=== PATIENT | female | born 1935 | race Caucasian/White ===

== ENCOUNTER 2021-09-15 05:16 | Inpatient (IN) ==
[2021-09-15] MEDS ORDERED: FUROSEMIDE 40 MG/4 ML VIAL IV STA (06:22)
[2021-09-15 06:49] LABS: ABG Base Excess 5.8 MMOL/L (-2.5-2.5); ABG HCO3 29.5 MMOL/L (20-26); ABG Oxygen Saturation 89.7 % (95-100); ABG PCO2 34.5 MM HG (35-48); ABG PH 7.528 (7.35-7.45); ABG PO2 57.5 MM HG (80-95); ABG TCO2 26.1 MMOL/L (23-27)
[2021-09-15 07:00] LABS: Basophils % 0.1 % (0.0-0.8); Hematocrit 29.2 VOL% (35.7-47.0); Hemoglobin 9.5 GM/DL (12.0-16.0); Immature Granulocytes % 0.7 %; Immature Granulocytes Absolute 0.16 #; Lymphocytes # 0.6 10*3/uL (1.4-4.0); Lymphocytes % 2.7 % (21.3-54.2); Mean Corpuscular HGB Conc 32.5 GM/DL (32-36); Mean Corpuscular Volume 89.8 FL (87-102); Mean Platelet Volume 10.1 FL (9.6-12.0); Neutrophils % 90.5 % (38.7-73.9); Platelet Count 435 T/CUMM (130-400); Red Blood Count 3.25 MC/CUMM (3.8-5.5); Red Cell Distribution Width 14.6 % (9.3-17.3); White Blood Count 21.9 T/CUMM (4-12)
[2021-09-15 07:11] LABS: INR 1.1; PT Patient Result 11.8 SECS (10.5-12.0); Partial Thromboplastin Time 24.8 SECS (23.8-32.1)
[2021-09-15] MEDS ORDERED: MEROPENEM 500 MG in SODIUM CHLORIDE 0.9% 100 ML IV ONE (07:19)
[2021-09-15 07:21] LABS: Albumin 2.9 G/DL (3.4-5.0); Bilirubin,Total 0.6 MG/DL (0.20-1.00); Calcium 8.7 MG/DL (8.5-10.1); Osmolality,Calculated 283.5 MOS/KG (273-304); Potassium 4.5 MMOL/L (3.5-5.1); Total Protein 6.5 G/DL (6.4-8.2)
[2021-09-15] MEDS ORDERED: HYDROCORTISONE 100 MG VIAL IV STA (08:26)
[2021-09-15] MEDS ORDERED: ONDANSETRON 4 MG/2 ML VIAL IV PRN (09:03)
[2021-09-15] MEDS ORDERED: ACETAMINOPHEN 325 MG TABLET PO PRN (09:03)
[2021-09-15] MEDS ORDERED: ALBUTEROL 2.5 MG/3 ML NEB RESP TX PRN (09:03)
[2021-09-15] MEDS: PANTOPRAZOLE 40 MG VIAL IV SCH (09:24)
[2021-09-15 10:32] LABS: Lymphocytes 4 % (20-55); Segmented Neutrophils 92 % (50-85); Total Cells Counted 100
[2021-09-15 10:33] LABS: Ovalocytes Few; Platelet Estimate Normal; Polychromasia Slight; Target Cells Few
[2021-09-15] MEDS: LEVOTHYROXINE 100 MCG VIAL IV SCH (10:37)
[2021-09-15] MEDS ORDERED: ACETAMINOPHEN 500 MG TABLET PO PRN (10:51)
[2021-09-15] MEDS ORDERED: traMADol 50 MG TABLET PO PRN (10:53)
[2021-09-15] MEDS ORDERED: traMADol 50 MG TABLET PO SCH (11:00)
[2021-09-15] MEDS ORDERED: MORPHINE 2 MG/1 ML SYRINGE IV STA (11:00)
[2021-09-15] MEDS ORDERED: ONDANSETRON 4 MG/2 ML VIAL IV STA (11:00)
[2021-09-15] MEDS ORDERED: ENOXAPARIN 40 MG/0.4 ML SYRINGE SUBCUT SCH (12:00)
[2021-09-15] MEDS: HYDROCORTISONE 100 MG VIAL IV SCH (14:54)
[2021-09-15] MEDS: MEROPENEM 500 MG in SODIUM CHLORIDE 0.9% 100 ML IV SCH (16:39)
[2021-09-15] MEDS ORDERED: METOPROLOL TARTRATE 25 MG TABLET PO SCH (17:45)
[2021-09-15] MEDS ORDERED: AMIODARONE INJ 150 MG in DEXTROSE 5% 100 ML IV ONE (17:54)
[2021-09-15] MEDS ORDERED: ASPIRIN 325 MG TABLET PO ONE (17:54)
[2021-09-15] MEDS ORDERED: ENOXAPARIN 80 MG/0.8 ML SYRINGE SUBCUT ONE (17:54)
[2021-09-15] MEDS: FUROSEMIDE 40 MG/4 ML VIAL IV SCH (18:00)
[2021-09-15] MEDS ORDERED: AMIODARONE INJ 450 MG in DEXTROSE 5% 241 ML IV SCH (18:30)
[2021-09-15 18:35] LABS: Calcium 8.5 MG/DL (8.5-10.1); Osmolality,Calculated 283.5 MOS/KG (273-304); Potassium 4.7 MMOL/L (3.5-5.1)
[2021-09-15] MEDS ORDERED: TIROFIBAN 5,000 MCG/100 ML PREMIX IV ONE (19:29)
[2021-09-15] MEDS ORDERED: DOPamine 800 MG/250 ML PREMIX IV ONE ×2 (20:01→20:04)
[2021-09-15] MEDS ORDERED: FUROSEMIDE 40 MG/4 ML VIAL IV ONE (20:24)
[2021-09-15] MEDS ORDERED: ETOMIDATE 20 MG/10 ML VIAL IV ONE (20:31)
[2021-09-15] MEDS ORDERED: ROCURONIUM 100 MG/10 ML VIAL IV ONE (20:32)
[2021-09-15] MEDS ORDERED: FUROSEMIDE 40 MG/4 ML VIAL ONE (20:35)
[2021-09-15] MEDS: TIROFIBAN 5,000 MCG/100 ML PREMIX IV SCH (20:39)
[2021-09-15] MEDS ORDERED: HEPARIN/NACL 0.9% 2 UNITS/ML 1,000 UNIT/500 ML BAG IV ONE (20:44)
[2021-09-15] MEDS ORDERED: SIMVASTATIN 20 MG TABLET PO SCH (21:00)
[2021-09-15] MEDS: DOPamine 800 MG/250 ML PREMIX IV PRN (21:08)
[2021-09-15 22:39] LABS: ABG Base Excess -4.4 MMOL/L (-2.5-2.5); ABG HCO3 20.7 MMOL/L (20-26); ABG Oxygen Saturation 91.8 % (95-100); ABG PCO2 58.1 MM HG (35-48); ABG PH 7.221 (7.35-7.45); ABG PO2 83.5 MM HG (80-95); ABG TCO2 22.6 MMOL/L (23-27)
[2021-09-15] MEDS: rOPINIRole 1 MG TABLET PO SCH (23:19)
[2021-09-16] MEDS: HYDROCORTISONE 100 MG VIAL IV SCH ×4 (00:58→23:03)
[2021-09-16] MEDS: MEROPENEM 500 MG in SODIUM CHLORIDE 0.9% 100 ML IV SCH ×4 (01:06→23:04)
[2021-09-16] MEDS: TIROFIBAN 5,000 MCG/100 ML PREMIX IV SCH ×3 (02:01→22:45)
[2021-09-16] MEDS: AMIODARONE INJ 450 MG in DEXTROSE 5% 241 ML IV SCH ×2 (02:55→14:38)
[2021-09-16 03:15] LABS: ABG Base Excess 1.8 MMOL/L (-2.5-2.5); ABG Oxygen Saturation 97.9 % (95-100); ABG PCO2 48.3 MM HG (35-48); ABG PH 7.365 (7.35-7.45); ABG TCO2 25.7 MMOL/L (23-27)
[2021-09-16 03:17] LABS: Basophils % 0.1 % (0.0-0.8); Hematocrit 26.8 VOL% (35.7-47.0); Hemoglobin 8.5 GM/DL (12.0-16.0); Immature Granulocytes % 1.1 %; Lymphocytes # 0.5 10*3/uL (1.4-4.0); Lymphocytes % 1.6 % (21.3-54.2); Mean Corpuscular HGB Conc 31.7 GM/DL (32-36); Mean Corpuscular Volume 90.2 FL (87-102); Mean Platelet Volume 10.2 FL (9.6-12.0); Monocytes % 9.2 % (1.7-12.7); Platelet Count 433 T/CUMM (130-400); Red Blood Count 2.97 MC/CUMM (3.8-5.5); Red Cell Distribution Width 14.2 % (9.3-17.3); White Blood Count 28.3 T/CUMM (4-12)
[2021-09-16 03:36] LABS: Hypochromia 1+; Lymphocytes 1 % (20-55); Microcytosis 1+; Platelet Estimate Adequate; Segmented Neutrophils 91 % (50-85); Total Cells Counted 100
[2021-09-16 03:47] LABS: Calcium 8.1 MG/DL (8.5-10.1); Osmolality,Calculated 289.5 MOS/KG (273-304); Potassium 4.2 MMOL/L (3.5-5.1)
[2021-09-16] MEDS: MIDAZOLAM 100 MG in SODIUM CHLORIDE 0.9% 80 ML IV PRN ×2 (06:59→23:46)
[2021-09-16] MEDS: LEVOTHYROXINE 100 MCG VIAL IV SCH (07:24)
[2021-09-16] MEDS: FUROSEMIDE 40 MG/4 ML VIAL IV SCH ×2 (08:44→16:04)
[2021-09-16] MEDS: PANTOPRAZOLE 40 MG VIAL IV SCH (08:44)
[2021-09-16] MEDS: MAGNESIUM OXIDE 400 MG TABLET PO SCH (08:47)
[2021-09-16] MEDS: SERTRALINE 25 MG TABLET PO SCH (08:47)
[2021-09-16] MEDS: ASPIRIN CHEW 81 MG TABLET PO SCH (08:47)
[2021-09-16] MEDS ORDERED: ASPIRIN EC 81 MG TABLET PO SCH (09:00)
[2021-09-16] MEDS ORDERED: SODIUM CHLORIDE 0.9% 250 ML IV ONE (11:00)
[2021-09-16] MEDS: DOXYCYCLINE HYCLATE INJ 100 MG in SODIUM CHLORIDE 0.9% 100 ML IV SCH ×2 (11:11→23:45)
[2021-09-16] MEDS: DORNASE ALFA 2.5 MG/2.5 ML VIAL RESP TX SCH ×2 (11:32→19:20)
[2021-09-16 12:03] LABS: ABG Base Excess 2.9 MMOL/L (-2.5-2.5); ABG Oxygen Saturation 99.8 % (95-100); ABG PH 7.424 (7.35-7.45); ABG TCO2 26.1 MMOL/L (23-27); Glucose Heart Surgery 133 MG/DL (74-106); Hematocrit Heart Surgery 20.6 PERCENT (37-47); Hemoglobin Heart Surgery 6.6 G/DL (12.0-16.0); Potassium Heart/CVR 4.6 MMOL/L (3.5-5.1)
[2021-09-16] MEDS: DOPamine 800 MG/250 ML PREMIX IV PRN (12:07)
[2021-09-16] MEDS ORDERED: SODIUM CHLORIDE 0.9% 1,000 ML IV PRN (12:54)
[2021-09-16] MEDS ORDERED: FUROSEMIDE 100 MG/10 ML VIAL IV ONE (13:56)
[2021-09-16] MEDS ORDERED: ACETYLCYSTEINE 20% 800 MG/4 ML VIAL RESP TX SCH (15:00)
[2021-09-16 18:31] LABS: Arterial Base Excess iSTAT -1 MMOL/L (-2.5-2.5); Arterial Bicarbonate iSTAT 23.8 MMOL/L (20-26); Arterial O2 Saturation iSTAT 96 % (95-100); Arterial PCO2 iSTAT 37 MM HG (35-48); Arterial PO2 iSTAT 78 MM HG (80-95); Arterial Total CO2 iSTAT 25 MMO/L (23-27)
[2021-09-16] MEDS: rOPINIRole 1 MG TABLET PO SCH (20:09)
[2021-09-16 22:41] LABS: ABG Base Excess -0.3 MMOL/L (-2.5-2.5); ABG HCO3 24.1 MMOL/L (20-26); ABG PCO2 42.2 MM HG (35-48); ABG PH 7.377 (7.35-7.45); ABG PO2 81.2 MM HG (80-95); ABG TCO2 23.1 MMOL/L (23-27); Glucose Heart Surgery 134 MG/DL (74-106); Hematocrit Heart Surgery 26.7 PERCENT (37-47); Hemoglobin Heart Surgery 8.6 G/DL (12.0-16.0); Potassium Heart/CVR 4.8 MMOL/L (3.5-5.1)
[2021-09-17 04:29] LABS: ABG Base Excess -1.7 MMOL/L (-2.5-2.5); ABG HCO3 22.9 MMOL/L (20-26); ABG Oxygen Saturation 97.4 % (95-100); ABG PCO2 41.6 MM HG (35-48); ABG PH 7.362 (7.35-7.45); ABG TCO2 21.2 MMOL/L (23-27)
[2021-09-17 04:47] LABS: Basophils % 0.1 % (0.0-0.8); Hematocrit 24.7 VOL% (35.7-47.0); Hemoglobin 8.2 GM/DL (12.0-16.0); Immature Granulocytes % 0.7 %; Immature Granulocytes Absolute 0.15 #; Lymphocytes # 1.1 10*3/uL (1.4-4.0); Lymphocytes % 4.8 % (21.3-54.2); Mean Corpuscular HGB Conc 33.2 GM/DL (32-36); Mean Corpuscular Volume 90.1 FL (87-102); Mean Platelet Volume 11.1 FL (9.6-12.0); Monocytes % 7.5 % (1.7-12.7); Neutrophils % 86.9 % (38.7-73.9); Red Blood Count 2.74 MC/CUMM (3.8-5.5); Red Cell Distribution Width 14.3 % (9.3-17.3); White Blood Count 21.8 T/CUMM (4-12)
[2021-09-17 04:51] LABS: Platelet Count 274 T/CUMM (130-400)
[2021-09-17 04:57] LABS: Lymphocytes 2 % (20-55); Platelet Estimate Adequate; Segmented Neutrophils 90 % (50-85); Total Cells Counted 100
[2021-09-17 04:58] LABS: Hypochromia 1+; Microcytosis 1+
[2021-09-17 05:09] LABS: Calcium 7.2 MG/DL (8.5-10.1); Osmolality,Calculated 298.1 MOS/KG (273-304); Potassium 4.7 MMOL/L (3.5-5.1)
[2021-09-17] MEDS: HYDROCORTISONE 100 MG VIAL IV SCH ×3 (06:13→23:06)
[2021-09-17] MEDS: LEVOTHYROXINE 100 MCG VIAL IV SCH (06:14)
[2021-09-17] MEDS: FUROSEMIDE 40 MG/4 ML VIAL IV SCH ×2 (07:15→14:50)
[2021-09-17] MEDS: PANTOPRAZOLE 40 MG VIAL IV SCH (07:15)
[2021-09-17] MEDS: MEROPENEM 500 MG in SODIUM CHLORIDE 0.9% 100 ML IV SCH ×3 (07:20→23:06)
[2021-09-17] MEDS: DORNASE ALFA 2.5 MG/2.5 ML VIAL RESP TX SCH ×2 (07:30→18:15)
[2021-09-17] MEDS: SERTRALINE 25 MG TABLET PO SCH (08:40)
[2021-09-17] MEDS: ASPIRIN CHEW 81 MG TABLET PO SCH (08:40)
[2021-09-17] MEDS: MAGNESIUM OXIDE 400 MG TABLET PO SCH (08:40)
[2021-09-17 09:39] LABS: Bacteria,Urine Occasional /HPF (Few); Hyaline Casts,Urine 35 /LPF (0-3); Mucus,Urine Occasional /LPF (Occasional); RBC,Urine 4 /HPF (0-4); Squamous Epithelial Cell,Urine Occasional /HPF (0-10); Transitional Epi Cells,Urine Occasional /HPF (<1)
[2021-09-17 09:40] LABS: Bilirubin,Urine Negative (Negative); Glucose,Urine (UA) Negative (Negative); Ketones,Urine Trace mg/dL (Negative); Nitrite,Urine Negative (Negative); Protein,Urine Negative (Negative); Urine Appearance Clear (Clear); Urine Color Yellow (Yellow); Urine Specific Gravity 1.015 (1.001-1.035)
[2021-09-17 09:41] LABS: Blood, Urine Negative (Negative); Urine Urobilinogen 0.2 eU/dL (<2.0)
[2021-09-17] MEDS: DOXYCYCLINE HYCLATE INJ 100 MG in SODIUM CHLORIDE 0.9% 100 ML IV SCH (11:30)
[2021-09-17] MEDS: TIROFIBAN 5,000 MCG/100 ML PREMIX IV SCH (11:30)
[2021-09-17] MEDS ORDERED: ceFAZolin 1,000 MG VIAL IRRIG ONE (13:31)
[2021-09-17] MEDS ORDERED: ceFAZolin 1,000 MG VIAL ONE ×2 (15:12)
[2021-09-17] MEDS ORDERED: TISSUE ADHESIVE 1 EACH APPLICATOR TOP ONE (15:12)
[2021-09-17] MEDS: MIDAZOLAM 100 MG in SODIUM CHLORIDE 0.9% 80 ML IV PRN (15:20)
[2021-09-17 15:31] LABS: ABG Base Excess -3.9 MMOL/L (-2.5-2.5); ABG HCO3 21.1 MMOL/L (20-26); ABG Oxygen Saturation 93.2 % (95-100); ABG PCO2 43.6 MM HG (35-48); ABG PH 7.314 (7.35-7.45); ABG PO2 78.1 MM HG (80-95); ABG TCO2 20.2 MMOL/L (23-27)
[2021-09-17 16:09] LABS: Hematocrit 23.5 VOL% (35.7-47.0); Hemoglobin 7.8 GM/DL (12.0-16.0)
[2021-09-17] MEDS ORDERED: CLOPIDOGREL 300 MG TABLET PER TUBE ONE (18:00)
[2021-09-17] MEDS: rOPINIRole 1 MG TABLET PO SCH (20:57)
[2021-09-17] MEDS: fentaNYL INJ 1,250 MCG in SODIUM CHLORIDE 0.9% 225 ML IV SCH (21:42)
[2021-09-18] MEDS: DOXYCYCLINE HYCLATE INJ 100 MG in SODIUM CHLORIDE 0.9% 100 ML IV SCH ×2 (01:15→11:50)
[2021-09-18] MEDS: TIROFIBAN 5,000 MCG/100 ML PREMIX IV SCH (01:15)
[2021-09-18 03:09] LABS: ABG Base Excess -4.2 MMOL/L (-2.5-2.5); ABG HCO3 20.9 MMOL/L (20-26); ABG PCO2 42.7 MM HG (35-48); ABG PH 7.314 (7.35-7.45); ABG TCO2 20.6 MMOL/L (23-27)
[2021-09-18 03:12] LABS: Basophils % 0.1 % (0.0-0.8); Hemoglobin 7.3 GM/DL (12.0-16.0); Immature Granulocytes % 0.7 %; Immature Granulocytes Absolute 0.15 #; Mean Corpuscular HGB Conc 33.2 GM/DL (32-36); Mean Corpuscular Volume 90.9 FL (87-102); Mean Platelet Volume 10.4 FL (9.6-12.0); Monocytes % 6.2 % (1.7-12.7); Platelet Count 288 T/CUMM (130-400); Red Blood Count 2.42 MC/CUMM (3.8-5.5); Red Cell Distribution Width 14.3 % (9.3-17.3); White Blood Count 20.7 T/CUMM (4-12)
[2021-09-18 03:31] LABS: Hypochromia 1+; Lymphocytes 6 % (20-55); Microcytosis 1+; Platelet Estimate Adequate; Segmented Neutrophils 89 % (50-85); Total Cells Counted 100
[2021-09-18 03:34] LABS: Calcium 7.8 MG/DL (8.5-10.1); Osmolality,Calculated 304.1 MOS/KG (273-304); Potassium 4.4 MMOL/L (3.5-5.1)
[2021-09-18] MEDS ORDERED: SODIUM BICARBONATE 50 MEQ/50 ML VIAL IV ONE ×2 (04:24→15:37)
[2021-09-18] MEDS ORDERED: SODIUM BICARBONATE 50 MEQ/50 ML SYRINGE IV ONE (04:25)
[2021-09-18] MEDS ORDERED: NOREPINEPHRINE 4 MG/4 ML VIAL IV ONE ×2 (04:43→09:41)
[2021-09-18] MEDS: NOREPINEPHRINE 8 MG in SODIUM CHLORIDE 0.9% 242 ML IV PRN ×3 (04:51→12:15)
[2021-09-18] MEDS: DOPamine 800 MG/250 ML PREMIX IV PRN (05:05)
[2021-09-18] MEDS: MIDAZOLAM 100 MG in SODIUM CHLORIDE 0.9% 80 ML IV PRN (05:05)
[2021-09-18] MEDS ORDERED: DIGOXIN 0.5 MG/2 ML AMP IV ONE (06:05)
[2021-09-18] MEDS ORDERED: SODIUM CHLORIDE 0.9% 1,000 ML IV PRN (06:08)
[2021-09-18] MEDS: HYDROCORTISONE 100 MG VIAL IV SCH ×2 (06:08→14:15)
[2021-09-18] MEDS: LEVOTHYROXINE 100 MCG VIAL IV SCH (06:08)
[2021-09-18] MEDS: DORNASE ALFA 2.5 MG/2.5 ML VIAL RESP TX SCH (07:25)
[2021-09-18] MEDS: MEROPENEM 500 MG in SODIUM CHLORIDE 0.9% 100 ML IV SCH (08:00)
[2021-09-18] MEDS: MAGNESIUM OXIDE 400 MG TABLET PO SCH (09:00)
[2021-09-18] MEDS ORDERED: ROSUVASTATIN 20 MG TABLET NG SCH (09:00)
[2021-09-18] MEDS: SERTRALINE 25 MG TABLET PO SCH (09:05)
[2021-09-18] MEDS: ASPIRIN CHEW 81 MG TABLET PO SCH (09:05)
[2021-09-18] MEDS: PANTOPRAZOLE 40 MG VIAL IV SCH (09:25)
[2021-09-18] MEDS: FUROSEMIDE 40 MG/4 ML VIAL IV SCH ×2 (09:25→15:45)
[2021-09-18 09:32] LABS: ABG Base Excess -20.4 MMOL/L (-2.5-2.5); ABG HCO3 9.4 MMOL/L (20-26); ABG Oxygen Saturation 83.6 % (95-100); ABG PCO2 58.2 MM HG (35-48); ABG PO2 74.1 MM HG (80-95); ABG TCO2 12.4 MMOL/L (23-27)
[2021-09-18 09:37] LABS: ABG PH 6.931 (7.35-7.45)
[2021-09-18 10:33] LABS: ABG Base Excess -20.1 MMOL/L (-2.5-2.5); ABG HCO3 9.8 MMOL/L (20-26); ABG Oxygen Saturation 97.5 % (95-100); ABG PCO2 52.4 MM HG (35-48); ABG TCO2 11.8 MMOL/L (23-27)
[2021-09-18 10:35] LABS: ABG PH 6.961 (7.35-7.45)
[2021-09-18] MEDS ORDERED: CLOPIDOGREL 75 MG TABLET NG SCH (13:00)
[2021-09-18] MEDS ORDERED: FUROSEMIDE 100 MG/10 ML VIAL IV ONE (14:05)
[2021-09-18] MEDS: NOREPINEPHRINE 16 MG in SODIUM CHLORIDE 0.9% 234 ML IV PRN ×3 (14:35→21:41)
[2021-09-18 14:57] LABS: ABG Base Excess -23.1 MMOL/L (-2.5-2.5); ABG Oxygen Saturation 93.3 % (95-100); ABG PCO2 45.6 MM HG (35-48); ABG TCO2 9.3 MMOL/L (23-27)
[2021-09-18 14:59] LABS: ABG PH 6.912 (7.35-7.45)
[2021-09-18 19:02] VITALS: BP 128/29
[2021-09-18] MEDS: rOPINIRole 1 MG TABLET PO SCH (19:58)
[2021-09-18] MEDS: fentaNYL INJ 1,250 MCG in SODIUM CHLORIDE 0.9% 225 ML IV SCH (21:31)
[2021-09-18] MEDS ORDERED: MEROPENEM 500 MG in SODIUM CHLORIDE 0.9% 100 ML IV SCH (23:00)
[2021-09-19] MEDS ORDERED: LEVOTHYROXINE 100 MCG VIAL IV SCH (07:00)
== END 2021-09-18 21:48 | disposition expired | DRG 270 ==
LOC: EDUNIT# → EDBD → N.ED 05:16 → N.EDINP 08:16 → N.ICU 15:55
PROVIDERS: ADMIT Internal Medicine; ATTEND Internal Medicine